=== PATIENT | female | born 1965 | race Caucasian/White ===

== ENCOUNTER → 2017-04-25 | Outpatient (CLI) | payer BC ==
--- NOTE | 2017-04-25 08:25 | RAD ---
Indication: Chronic bilateral knee pain. Time of exam 0816 hours. AP and lateral views of bilateral knees were obtained. There is mild medial compartmental joint space narrowing bilaterally. The articular surfaces are smooth. No fracture or dislocation is seen. No joint effusion is identified. Impression: Mild degenerative changes. No acute bony abnormality is detected.
== END | disposition home or self-care (01) ==
LOC: DXRADRC 08:01
PROVIDERS: ATTEND Physician Assistant Medical
DX: M17.0 Bilateral primary osteoarthritis of knee (principal)
CPT/HCPCS: 73560

== ENCOUNTER 2017-06-24 07:45 | Inpatient (IN) | payer BC ==
[~2017-06-24] VITALS: Ht 152.4 cm; Wt 116.6 kg
[2017-06-24] MEDS ORDERED: ASPIRIN 81 MG TAB.CHEW PO ONE (08:25)
[2017-06-24 08:34] LABS: BASO # 0.1 x10^3/uL (0.0-0.2); BASO % 1 % (0-3); EOS # 0.3 x10^3/uL (0.0-0.7); EOS % 3 % (0-3); HEMATOCRIT 47.6 % (36.0-47.0); HEMOGLOBIN 16.3 g/dL (12.0-15.5); LYMPH # 2.8 x10^3/uL (1.0-4.8); LYMPH % 28 % (24-48); MEAN CORPUSCULAR HEMOGLOBIN 30 pg (25-35); MEAN CORPUSCULAR HGB CONC 34 g/dL (31-37); MEAN CORPUSCULAR VOLUME 87 fL (79-100); MONO % 10 % (0-9); NEUT # 5.8 x10^3uL (1.8-7.7); NEUT % 58 % (31-73); PLATELET COUNT 286 x10^3/uL (140-400); RED BLOOD COUNT 5.49 x10^6/uL (3.50-5.40); RED CELL DISTRIBUTION WIDTH 13.9 % (11.5-14.5)
--- NOTE | 2017-06-24 08:36 | RAD ---
Portable chest, 06/24/2017: History: Chest pain Comparison is made to a study from 10/26/2007. The heart size and pulmonary vascularity are normal. The lungs are clear. There is no evidence of pleural fluid. IMPRESSION: No acute cardiopulmonary abnormality is detected.
[2017-06-24 08:46] LABS: ALBUMIN 3.6 g/dL (3.4-5.0); ALBUMIN/GLOBULIN RATIO 1.1 (1.0-1.7); CALCIUM 9.2 mg/dL (8.5-10.1); CREATININE 0.9 mg/dL (0.6-1.0); GFR 65.5; POTASSIUM 3.8 mmol/L (3.5-5.1); TOTAL BILIRUBIN 0.8 mg/dL (0.2-1.0)
--- NOTE | 2017-06-24 10:15 | PHYS DOC ---
Past History Past Medical History: Arthritis, Hypertension Past Surgical History: Cholecystectomy, Alcohol Use: None Drug Use: None Adult General Chief Complaint Chief Complaint: BRADYCARDIA HPI HPI 52-year-old female with past medical history of morbid obesity hypertension and high cholesterol now presents to the emergency department concerned about awakening with a very low heart rate. 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 Miles. His been compliant with this medication. Over the last 3 days each morning patient states she has awakened with chest pressure and shortness of breath. Her heart rate at those times after awakening with a range from 38 to low 40s. After getting up and walking around her heart rate improves to 60s and 70s and she states she feels fine. She had no nausea vomiting or diaphoresis. No productive cough or fever. No pleuritic pain or pain with movement or palpation of the chest wall. She is currently asymptomatic. States she has not perceived exertional chest pain during the day during her normal activities. Patient's last cardiac workup was more than 8 years ago when she had a stress test which was unremarkable. She has never had a cardiac catheterization. Review of Systems Review of Systems Constitutional: Denies fever or chills [] Eyes: Denies change in visual acuity, redness, or eye pain [] HENT: Denies nasal congestion or sore throat [] Respiratory: Denies cough or shortness of breath [] Cardiovascular: No additional information not addressed in HPI [] GI: Denies abdominal pain, nausea, vomiting, bloody stools or diarrhea [] : Denies dysuria or hematuria [] Musculoskeletal: Denies back pain or joint pain [] Integument: Denies rash or skin lesions [] Neurologic: Denies headache, focal weakness or sensory changes [] Endocrine: Denies polyuria or polydipsia [] Current Medications Current Medications Current Medications Medications (Trade) Dose Ordered Sig/Osvaldo Start Time Stop Time Status Last Admin Dose Admin Aspirin (Children'S Aspirin) 324 mg 1X ONCE 06/24/17 08:25 06/24/17 08:26 DC 06/24/17 08:21 324 MG Allergies Allergies Allergies Coded Allergies Type Severity Reaction Last Updated Verified azithromycin Allergy Mild 06/24/17 Yes ciprofloxacin Allergy Unknown 06/24/17 Yes Physical Exam Physical Exam Well-appearing 52-year-old female morbidly obese no acute distress nontender chest wall clear lungs regular rate and rhythm no crepitus or skin changes of the anterior chest wall. Abdomen remainder of exam is benign with no lower extremity edema, tenderness, or asymmetry Constitutional: Well developed, well nourished, no acute distress, non-toxic appearance. [] HENT: Normocephalic, atraumatic, bilateral external ears normal, oropharynx moist, no oral exudates, nose normal. [] Eyes: PERRLA, EOMI, conjunctiva normal, no discharge. [] Neck: Normal range of motion, no tenderness, supple, no stridor. [] Cardiovascular:Heart rate regular rhythm, no murmur [] Lungs & Thorax: Bilateral breath sounds clear to auscultation [] Abdomen: Bowel sounds normal, soft, no tenderness, no masses, no pulsatile masses. [] Skin: Warm, dry, no erythema, no rash. [] Back: No tenderness, no CVA tenderness. [] Extremities: No tenderness, no cyanosis, no clubbing, ROM intact, no edema. [] Neurologic: Alert and oriented X 3, normal motor function, normal sensory function, no focal deficits noted. [] Psychologic: Affect normal, judgement normal, mood normal. [] Current Patient Data Vital Signs Vital Signs Date Time Temp Pulse Resp B/P (MAP) Pulse Ox O2 Delivery O2 Flow Rate FiO2 06/24/17 07:45 99.2 88 16 97 Room Air Lab Results Laboratory Tests Test 06/24/17 08:18 White Blood Count 10.0 x10^3/uL (4.0-11.0) Red Blood Count 5.49 x10^6/uL (3.50-5.40) H Hemoglobin 16.3 g/dL (12.0-15.5) H Hematocrit 47.6 % (36.0-47.0) H Mean Corpuscular Volume 87 fL (79-100) Mean Corpuscular Hemoglobin 30 pg (25-35) Mean Corpuscular Hemoglobin Concent 34 g/dL (31-37) Red Cell Distribution Width 13.9 % (11.5-14.5) Platelet Count 286 x10^3/uL (140-400) Neutrophils (%) (Auto) 58 % (31-73) Lymphocytes (%) (Auto) 28 % (24-48) Monocytes (%) (Auto) 10 % (0-9) H Eosinophils (%) (Auto) 3 % (0-3) Basophils (%) (Auto) 1 % (0-3) Neutrophils # (Auto) 5.8 x10^3uL (1.8-7.7) Lymphocytes # (Auto) 2.8 x10^3/uL (1.0-4.8) Monocytes # (Auto) 1.0 x10^3/uL (0.0-1.1) Eosinophils # (Auto) 0.3 x10^3/uL (0.0-0.7) Basophils # (Auto) 0.1 x10^3/uL (0.0-0.2) Sodium Level 139 mmol/L (136-145) Potassium Level 3.8 mmol/L (3.5-5.1) Chloride Level 104 mmol/L (98-107) Carbon Dioxide Level 28 mmol/L (21-32) Anion Gap 7 (6-14) Blood Urea Nitrogen 10 mg/dL (7-20) Creatinine 0.9 mg/dL (0.6-1.0) Estimated GFR (Cockcroft-Gault) 65.5 BUN/Creatinine Ratio 11 (6-20) Glucose Level 105 mg/dL (70-99) H Calcium Level 9.2 mg/dL (8.5-10.1) Total Bilirubin 0.8 mg/dL (0.2-1.0) Aspartate Amino Transferase (AST) 18 U/L (15-37) Alanine Aminotransferase (ALT) 33 U/L (14-59) Alkaline Phosphatase 64 U/L (46-116) Troponin I Quantitative < 0.017 ng/mL (0-0.055) Total Protein 7.0 g/dL (6.4-8.2) Albumin 3.6 g/dL (3.4-5.0) Albumin/Globulin Ratio 1.1 (1.0-1.7) EKG EKG EKG with normal sinus rhythm at 80 bpm normal axis no STEMI. ST segment depression with nonspecific T-wave abnormality anterior lateral distribution. Interpreted by me Radiology/Procedures Radiology/Procedures Chest x-ray no acute disease interpreted by me report reviewed [] Course & Med Decision Making Course & Med Decision Making Pertinent Labs and Imaging studies reviewed. (See chart for details) Signs and symptoms consistent with chest pain a possible cardiac etiology with EKG changes suggestive of ischemia. Patient is pain-free in the emergency department. Aspirin was given. Chest x-ray unremarkable troponin negative. Patient stable on multiple re-exams. His discussed with Dr. Maru shetty service and his nurse practitioner is aware of the history and findings, they agree with admission for further cardiac workup and they will provide cardiac consultation.. Haile discussed with Dr. Farr she is aware the history and findings and accept patient for inpatient admission to her service here at [facility]. [] Dragon Disclaimer Dragon Disclaimer This chart was dictated in whole or in part using Voice Recognition software in a busy, high-work load, and often noisy Emergency Department environment. It may contain unintended and wholly unrecognized errors or omissions. Departure Departure: Impression: Primary Impression: Chest pain Additional Impressions: ST segment changes on electrocardiogram Symptomatic bradycardia Disposition: ADMITTED INPATIENT Admitting Physician: Natalia Farr Condition: STABLE Referrals: FRANCIS STYLES (PCP) Problem Qualifiers BELIA ERVIN MD Jun 24, 2017 10:15
--- NOTE | 2017-06-24 11:09 | PDOC2 ---
YANCILESLY J SALES DATA ANALYST 06/24/17 1109: CONSULT Date of Admission DATE: 06/24/17 TIME: 11:06 Reason for Consult: symptomatic bradycardia Problem List Problems Medical Problems: (1) Chest pain Status: Acute (2) ST segment changes on electrocardiogram Status: Acute (3) Symptomatic bradycardia Status: Acute History of Present Illness Ms Delvalle is a 52 year old female who presents with complaints of heart rates in the 30s. She reports that she has been waking in the am with feeling short of breath and on checking her blood pressure she has gotten heart rate readings of 30s. She reportedly called the physicians office and was instructed to hold her atenolol for heart rate less than 60. She says her heart rate was improved by noon so she took her atenolol. this am she again woke with low heart rates so presented to the ED for evaluation. She reports most often low rates occurring in the am but can happen any time of day. She says she believes the episodes last up to 10 minutes. She reports associated lightheadedness, dyspnea and chest pressure. She believes exertion improves her rate. She denies complaints of congestive symptoms, edema or syncope. Past Medical History hypertension, dyslipidemia, DVT/PE, lumbago sinusitis, headaches, degenerative disc disease, anxiety Echo 2011 Normal LVEF 60-65% normal diastolic function no significant abnormalities MPI 2011 normal perfusion and wall motion Past Surgical History cholecystectomy hernia repair hysterectomy C section x 3 Family History significant for hypertension, stroke and RI Social History non smoker, no significant ETOH, no illicit drugs Current Medications Current Medications Aspirin (Children'S Aspirin) 324 mg 1X ONCE PO Last administered on 06/24/17t 08:21; Start 06/24/17 at 08:25; Stop 06/24/17 at 08:26; Status DC Allergies: Coded Allergies: azithromycin (Verified Allergy, Mild, 06/24/17) ciprofloxacin (Verified Allergy, Unknown, 06/24/17) Review of System as per HPI or negative General: Alert, Oriented X3, Cooperative, No acute distress HEENT: Atraumatic, EOMI, Mucous membr. moist/pink Lungs: Clear to auscultation, Normal air movement Heart: Regular rate, Normal S1, Normal S2, No murmurs, Other (no gallops, clicks or rubs) Abdomen: Normal bowel sounds, Soft, No tenderness Extremities: No cyanosis, No edema, Normal pulses Neuro: Normal speech, Strength at 5/5 X4 ext Psych/Mental Status: Mental status NL, Mood NL VITALS Vital Signs Date Time Temp Pulse Resp B/P (MAP) Pulse Ox O2 Delivery O2 Flow Rate FiO2 06/24/17 07:45 99.2 88 16 97 Room Air Labs Laboratory Tests Test 06/24/17 08:18 White Blood Count 10.0 x10^3/uL (4.0-11.0) Red Blood Count 5.49 x10^6/uL (3.50-5.40) Hemoglobin 16.3 g/dL (12.0-15.5) Hematocrit 47.6 % (36.0-47.0) Mean Corpuscular Volume 87 fL (79-100) Mean Corpuscular Hemoglobin 30 pg (25-35) Mean Corpuscular Hemoglobin Concent 34 g/dL (31-37) Red Cell Distribution Width 13.9 % (11.5-14.5) Platelet Count 286 x10^3/uL (140-400) Neutrophils (%) (Auto) 58 % (31-73) Lymphocytes (%) (Auto) 28 % (24-48) Monocytes (%) (Auto) 10 % (0-9) Eosinophils (%) (Auto) 3 % (0-3) Basophils (%) (Auto) 1 % (0-3) Neutrophils # (Auto) 5.8 x10^3uL (1.8-7.7) Lymphocytes # (Auto) 2.8 x10^3/uL (1.0-4.8) Monocytes # (Auto) 1.0 x10^3/uL (0.0-1.1) Eosinophils # (Auto) 0.3 x10^3/uL (0.0-0.7) Basophils # (Auto) 0.1 x10^3/uL (0.0-0.2) Sodium Level 139 mmol/L (136-145) Potassium Level 3.8 mmol/L (3.5-5.1) Chloride Level 104 mmol/L (98-107) Carbon Dioxide Level 28 mmol/L (21-32) Anion Gap 7 (6-14) Blood Urea Nitrogen 10 mg/dL (7-20) Creatinine 0.9 mg/dL (0.6-1.0) Estimated GFR (Cockcroft-Gault) 65.5 BUN/Creatinine Ratio 11 (6-20) Glucose Level 105 mg/dL (70-99) Calcium Level 9.2 mg/dL (8.5-10.1) Total Bilirubin 0.8 mg/dL (0.2-1.0) Aspartate Amino Transf (AST/SGOT) 18 U/L (15-37) Alanine Aminotransferase (ALT/SGPT) 33 U/L (14-59) Alkaline Phosphatase 64 U/L (46-116) Troponin I Quantitative < 0.017 ng/mL (0-0.055) Total Protein 7.0 g/dL (6.4-8.2) Albumin 3.6 g/dL (3.4-5.0) Albumin/Globulin Ratio 1.1 (1.0-1.7) Images EKG - sinus rhythm with non specific st/t abn. no acute ischemic changes CXR - no acute abnormalities Assessment/Plan 1. Symptomatic micah - Currently sinus rhythm 80s. Stop atenolol. monitor and plan for outpatient event monitoring. As symptoms most frequently occur in the am on waking, consider sleep apnea eval. 2. chest pain - monitor serial enzymes, check echo and if ok, plan for outpatient event monitor. 3. hypertension - controlled. 4. hyperlipidemia - check lipids 5. obesity - weight reduction recommended. Problems: LAUREL JACKSON MD 06/24/17 1634: CONSULT Allergies: Coded Allergies: azithromycin (Verified Allergy, Mild, 06/24/17) ciprofloxacin (Verified Allergy, Unknown, 06/24/17) Assessment/Plan Patient seen and examined. Agree with DRILLER'S ASSISTANT's assessment and plan Agree with holding beta blockers for bradycardia. Consider sleep study to rule out sleep apnea. Chest pain with atypical features. Cardiac enzymes negative. 2-D echo showed normal LV function without any wall motion abnormalities. Plan for event monitor as an outpatient to rule out any significant arrhythmias. Thank you for your consultation. Problems: LESLY PETE APRN Jun 24, 2017 11:09 LAUREL JACKSON MD Jun 24, 2017 16:34
[2017-06-24 11:41] VITALS: BP 132/78
[2017-06-24] MEDS ORDERED: AMLO10TA2 PO (12:14)
[2017-06-24] MEDS ORDERED: SIMV40TA3 PO (12:14)
[2017-06-24] MEDS ORDERED: LOSA50TA6 PO (12:14)
[2017-06-24] MEDS ORDERED: ATEN50TA PO (12:14)
--- NOTE | 2017-06-24 12:30 | NUR ---
The patient, LEANDRO ERVIN, 52 y/o, F admitted by AN FLOWERS DO, was given written information regarding hospital policies, unit procedures and contact persons. Valuables were checked and left in room. Pt states she has been having chest pain, weakness and nausea in the morning x 3 days. states she has been told she may have sleep apnea as well. Dr. Choe aware of patients arrival to unit. Echo ordered, repeat troponins and lipids. See flowsheet. Able to verbalize POC, will continue to monitor.
[2017-06-24 14:17] LABS: THYROID STIM HORMONE (TSH) 5.154 uIU/mL (0.358-3.740)
--- NOTE | 2017-06-24 14:45 | NUR ---
air sealing technician here at this time. Noted on teletypesetter monitor that patient appears to go into bigemeny when asleep, once woken up then she goes back into SR. Pt states she feels a little off when waking up. Nocturnal desat and sleep apnea study ordered.
[2017-06-24 15:28] VITALS: BP 127/85
--- NOTE | 2017-06-24 16:30 | CARD ---
APPROVED REPORT EXAM: Two-dimensional and M-mode echocardiogram with Doppler and color Doppler. Other Information Quality : Excellent INDICATION Chest Pain RISK FACTORS Obesity 2D DIMENSIONS RVDd3.0 (2.9-3.5cm)Left Atrium(2D)4.1 (1.6-4.0cm) IVSd1.1 (0.7-1.1cm)Aortic Root(2D)2.5 (2.0-3.7cm) LVDd3.6 (3.9-5.9cm)LVOT Diameter2.0 (1.8-2.4cm) PWd1.1 (0.7-1.1cm)LVDs1.9 (2.5-4.0cm) FS (%) 30.0 %SV42.1 ml LVEF(%)60.0 (>50%) Aortic Valve AoV Peak David.121.7cm/sAoV VTI21.9cm AO Peak GR.5.9mmHgLVOT Peak David.115.1cm/s LVOT VTI 21.46cmAO Mean GR.3mmHg AME (VMAX)2.30co1QXQ (VTI)2.98cm2 Mitral Valve MV E Opfnlyoe00.0cm/sMV DECEL ZUCF102bj MV A Qzpwaaxw09.8cm/sE/A Ratio0.7 Tricuspid Valve TR P. Oxgccxhm454zf/sRAP UYRNQMIT3onMw TR Peak Gr.93ioFlSXZS57mkQf Pulmonary Vein S1 Umpzliau07.9cm/sD2 Dcyvkout95.1cm/s LEFT VENTRICLE The left ventricle is normal size. There is normal left ventricular wall thickness. The left ventricu lar systolic function is normal and the ejection fraction is within normal range. The Ejection Fracti on is 55-60%. There is normal LV segmental wall motion. Transmitral Doppler flow pattern is Grade I-a bnormal relaxation pattern. RIGHT VENTRICLE The right ventricle is normal size. The right ventricular systolic function is normal. ATRIA The left atrium size is normal. The right atrium size is normal. The interatrial septum is intact wit h no evidence for an atrial septal defect or patent foramen ovale as noted on 2-D or Doppler imaging. AORTIC VALVE The aortic valve is calcified but opens well. Doppler and Color Flow revealed no significant aortic r egurgitation. There is no significant aortic valvular stenosis. MITRAL VALVE The mitral valve is normal in structure and function. There is no evidence of mitral valve prolapse. There is no mitral valve stenosis. Doppler and Color Flow revealed trace mitral valve regurgitation. TRICUSPID VALVE The tricuspid valve is normal in structure and function. Doppler and Color Flow revealed trace tricus pid regurgitation. The PA pressure was estimated at 25 mmHg. There is no tricuspid valve stenosis. PULMONIC VALVE The pulmonary valve is normal in structure and function. Doppler and Color Flow revealed mild pulmoni c valvular regurgitation. There is no pulmonic valvular stenosis. GREAT VESSELS The aortic root is normal in size. The ascending aorta is normal in size. The IVC was not visualized. PERICARDIAL EFFUSION There is no evidence of significant pericardial effusion. Critical Notification Critical Value: No <Conclusion> The left ventricle is normal size. The left ventricular systolic function is normal and the ejection fraction is within normal range. The Ejection Fraction is 55-60%. There is no significant aortic valvular stenosis. Doppler and Color Flow revealed no significant aortic regurgitation. Doppler and Color Flow revealed trace mitral valve regurgitation. Doppler and Color Flow revealed trace tricuspid regurgitation. The PA pressure was estimated at 25 mmHg.
--- NOTE | 2017-06-24 17:52 | HP ---
ADMIT DATE: 06/24/2017 REASON FOR ADMISSION: Bradycardia, chest pressure, nausea and weakness. HISTORY OF PRESENT ILLNESS: This is a 35-year-old female who has been taking atenolol and her other blood pressure medications and reports waking up last several days with heart rates in the 30s and 40s and feeling chest pressure and having trouble breathing. Yesterday morning, she did not take her pills, after that she again started to have problems with low pulse. PAST MEDICAL HISTORY: Hypertension, obesity, arthritis of her knee, DVT and pulmonary embolism in 1996, for which she took Coumadin for a year. FAMILY HISTORY: Father had a heart attack. Mother breast cancer. She has been getting her mammograms. REVIEW OF SYSTEMS: A son in the room report, she does snore and possibly stops breathing while she is sleeping. There has been some increase in her weight and she has arthritis pain in her knee. MEDICATIONS: Were reviewed. Losartan 50, simvastatin 20 a day, amlodipine 10 a day and atenolol 50 mg daily, she takes them all in the morning except for the simvastatin. OBJECTIVE: VITAL SIGNS: Blood pressure 127/85, pulse 86, respirations 20, temperature 98.3, pulse ox 94% on room air. Height 60 inches, weight 258 pounds. GENERAL: A 52-year-old in no acute distress. ENT: His hearing is normal. Her eyes are clear. Nose is patent. Throat was clear. Large tongue relative to the posterior pharynx and short neck. No adenopathy. LUNGS: Clear. CARDIOVASCULAR: Regular rhythm and rate. ABDOMEN: Large, obese. There is mild midepigastric tenderness, otherwise nontender. EXTREMITIES: Without edema. MUSCULOSKELETAL: Early on, the patient had been sleeping and nursing reported that she went into bigeminy and when they woke her up, she promptly woke up. LABORATORY DATA: Hemoglobin 16.3, hematocrit 47.6. Lipids: LDL 112, her TSH is 5.154. Troponins are negative. EKG is not available to review the reported some ST depression. ASSESSMENT: 1. Bradycardia secondary to beta blockers. 2. Chest pain, questionable etiology. 3. Morbid obesity. 4. Sleep apnea suspect with bigeminy while sleeping. 5. Polycythemia, probably from sleep apnea. 6. Subclinical hypothyroidism. PLAN: Check T3 and free T3 and T4 and do a nocturnal oximetry tonight. AN FLOWERS DO DR: ZACHERY/tabitha JOB#: [id number] / [id number]
[2017-06-24 19:09] VITALS: BP 129/86
[2017-06-24 23:17] VITALS: BP 133/74
--- NOTE | 2017-06-25 01:00 | NUR ---
transfer table operator helper of care. Report received from HANANE Arthur.
[2017-06-25 05:19] VITALS: BP 165/85
[2017-06-25 05:41] LABS: BASO % 0 % (0-3); EOS # 0.2 x10^3/uL (0.0-0.7); EOS % 2 % (0-3); HEMATOCRIT 48.8 % (36.0-47.0); HEMOGLOBIN 16.7 g/dL (12.0-15.5); LYMPH # 2.9 x10^3/uL (1.0-4.8); LYMPH % 29 % (24-48); MEAN CORPUSCULAR HEMOGLOBIN 30 pg (25-35); MEAN CORPUSCULAR HGB CONC 34 g/dL (31-37); MEAN CORPUSCULAR VOLUME 87 fL (79-100); MONO # 0.9 x10^3/uL (0.0-1.1); MONO % 9 % (0-9); NEUT % 60 % (31-73); PLATELET COUNT 288 x10^3/uL (140-400); RED CELL DISTRIBUTION WIDTH 13.7 % (11.5-14.5); WHITE BLOOD COUNT 10.1 x10^3/uL (4.0-11.0)
[2017-06-25 05:49] LABS: ALBUMIN 3.8 g/dL (3.4-5.0); ALBUMIN/GLOBULIN RATIO 1.1 (1.0-1.7); CALCIUM 9.4 mg/dL (8.5-10.1); CREATININE 0.9 mg/dL (0.6-1.0); GFR 65.5; MAGNESIUM 2.1 mg/dL (1.8-2.4); POTASSIUM 3.6 mmol/L (3.5-5.1); TOTAL BILIRUBIN 1.3 mg/dL (0.2-1.0); TOTAL PROTEIN 7.3 g/dL (6.4-8.2)
--- NOTE | 2017-06-25 06:45 | ACF ---
Admission Criteria Forms CARDIOLOGY [facility]G Clinical Indications for Admission to Inpatient Care ( [place]/check or initial the applicable condition/criteria) Hospital admission is needed for appropriate care of the patient because of ANY ONE of the following: [ ] I. Hemodynamic instability as indicated by ALL of the following (1)(2)(3) (4)(5)(6)(7)(8)(9)(10) [ ]a) Vital sign abnormality not readily corrected by appropriate treatment with 12-24 hours for ANY ONE: [ ]i) Hypotension that persists despite appropriate treatment (eg, volume repletion) [ ]ii) Tachycardiathat persists despite appropriate tx ( e.g., analgesia, fluids, sedation as indicated [ ]iii) Orthostatic vital sign changes that persists despite appropriate treatment (eg, volume repletion) [ ]b) Vital sign abnormailty that is severe indicated by ANY ONE of the following: [ ]i) Inadequate perfusion indicated by ANY ONE of the following: [ ] 1) Lactic acidosis (> 2 mmol/L) [ ] 2) New abnormal capillary refill (> 3 seconds) [ ] 3) Reduced urine output [ ] 4) New altered mental status [ ] 5) Myocardial Ischemia [ ] 6) Other metabolic acidosis (arterial pH <7.35 ) not otherwise explained. [ ]ii) Mean arterial pressure[A] less than 60 mm Hg [ ]iii) Mean arterial pressure[A] less than 70 mm Hg after 30 minutes of appropriate treatment (eg, fluid resuscitation) [ ]iv) Sustained heart rate greater than 120 beats per minute in adult or child 6 years or older[B] [ ]v) IV inotropic or vasopressor medication required to maintain adequate blood pressure or perfusion [ ] II. Severe heart failure as indicated by ANY ONE of the following(17)(18) [ ]a) Respiratory distress [ ]b) Hypotension [ ]c) Debilitating anasarca refractory to therapy (eg, tissue breakdown with infection)[C](19) [ ]d) Cardiac arrhythmias of immediate concern [ ]e) Myocardial ischemia [ ] III. Cardiac arrhythmias or findings of immediate concern indicated by ANY ONE of the following (21)(22): [ ] a) Heart rhythms that are inherently dangerous or unstable indicated by ANY ONE of the following (23)(24)(25): [ ] i) Resuscitated ventricular fibrillation or cardiac arrest [ ] ii) Ventricular escape rhythm [ ] iii) Sustained ventricular tachycardia (30 seconds or more of ventricular rhythm at greater than 100 beats per minute) [ ] iv) Nonsustained ventricular tachycardia and ANY ONE of the following: [ ] 1) Suspected cardiac ischemia as cause or consequence of ventricular tachycardia [ ] 2) Acute myocarditis [ ] b) Unstable cardiac conduction defects indicated by ANY ONE of the following(25)(26)(27) [ ] i) Type II second-degree atrioventricular block [ ]ii) Third-degree atrioventricular block [ ]iii) New-onset left bundle branch block with suspected myocardial ischemia [ ]c) Any heart rhythm and ANY ONE of the following (23)(24)(28)(29) (30) [ ] i) Continuous long-term ECG monitoring needed (e.g., initiation of drug requiring monitoring for more than 24 hours) [ ] ii) Patient has automatic implanted cardioverter defibrillator that is repeatedly firing, malfunctioning, or in need of immediate adjustment of settings beyond the scope of ambulatory or observation care [ ]d) Heart rhythms of concern due to ANY ONE of the following: [ ] i) Hypotension [ ] ii) Respiratory distress [ ] iii) Association with other significant symptoms (e.g., bradycardia with syncope or ongoing dizziness, supraventricular tachycardia with chest pain (28)(29)(31) [ ] IV. Monitoring for cardiac contusion beyond the scope of observation care needed [A](32)(33)(34) [ ] V. Surgical or device complication (e.g., valve replacement complication , ICD disfunction or pacemaker dysfunction) (49)(50)(51)(52)(53)(54) [ ] . Inpatient palliative care needed. [F](51)(52) Also use Inpatient Palliative Care Criteria [ ] VII. Nonbacterial thrombotic (marantic) endocarditis(43)(44)(55)(56)(57) [X] VIII. Cardiology condition, symptom, or finding for which emergency and observation care has failed or are not considered appropriate. [ ] IX. Acute valvular disease requiring inpatient as indicated by ANY ONE of the following (40)(41) [ ]a) Acute valvular regurgitation (42) [ ]b) Noninfectious valvulitis (43)(44) [ ]c) Obstructive valve thrombosis (45)(46) [ ]d) Paravalvular leak(47)(48) [ ]e) Other significant valvular disorder remaining after emergency or observation level of care (as appropriate) [ ]X. Pericardial disease requiring inpatient treatment as indicated by ANY ONE of the following (35)(36)(37)(38) [ ]a) Suspected tamponade [ ]b) Hemopericardium [ ]c) Other significant pericardial disorder remaining after emergency or observation level of care (as appropriate)(39) [ ] XI. Cardiac ischemia beyond scope of emergency and observation care. [ ] XII. Cyanotic heart disease requiring inpatient care as indicated by 1 or more of the following(58)(59)(60): [ ]a) Acute onset of hypoxemia [ ]b) Exacerbation [ ] XIII. Hypertension requiring inpatient treatment as indicated by ANYONE of the following(11)(12)(13)(14): [ ]a) Severe hypertension (SBP greater than 180 mm Hg or DBP greater than 110 mm Hg, or greater than the 95th percentile for age, gender, and height in pediatric patients) that cannot be controlled (eg, to SBP less than 160 mm Hg and DBP less than 100 mm Hg) by emergency department or observation care treatment(15) [ ]b) Acute end organ damage secondary to hypertension (SBP greater than 140 mm Hg or DBP greater than 90 mm Hg) as indicated by ANYONE of the following: [ ] i) Hypertensive encephalopathy (eg, Altered mental status)(16) [ ] ii) Cerebral infarction [ ] iii) Intracranial hemorrhage [ ] iv) Myocardial ischemia or infarction [ ] v) Heart failure (eg, pulmonary edema) [ ] vi) Aortic dissection [ ] vii) Increased creatinine (new) with reduction of more than 50% in estimated glomerular filtration rate from baseline [ ] viii) Papilledema [ ] ix) Retinal hemorrhage [ ] x) Microangiopathic hemolytic anemia [ ] xi) Seizure [ ] xii) Other significant finding secondary to hypertension [ ] XIV. Complications of transplanted heart indicated by ANY ONE of the following(61): [ ]a) Acute graft rejection requiring inpatient management (eg, intravenous imunosuppression)(62)(63) [ ]b) Acute graft heart failure indicated by ANY ONE of the following(64): [ ] i) Hemodynamic instability [ ] ii) Cardiac arrhythmias of immediate concern [ ] iii) Pulmonary edema that is very severe (eg, mechanical ventilation needed, imminent or likely, need for 100% oxygen to keep oxygen saturation above 90%) [ ] iv) Pulmonary edema that is persistent as indicated by ALL of the following: [ ] 1) New need for oxygen therapy to keep oxygen saturation above 90 % (or increased FiO2 need from baseline) [ ] 2) Has not improved sufficiently with emergency department or observation care IV diuretics or other heart failure treatments[E]. [ ] iv) Altered mental status that is severe or persistent [ ] iv) Increased creatinine (new on laboratory test) with reduction of more than 50% in estimated glomerular filtration rate from baseline [ ] iv) Progressively (ongoing) rising creatinine (known from past laboratory test) with reduction of more than 25% in estimated glomerular filtration rate from baseline [ ] iv) Acute renal failure [ ] iv) Acute peripheral ischemia (eg, examination shows pulseless, cool, mottled, or cyanotic extremity) [ ] iv) Pulmonary artery catheter monitoring needed [ ] iv) Other sign or symptom of heart failure requiring inpatient treatment (ie, too severe or not responsive to outpatient and observation care treatment) [ ]c) Infection requiring inpatient management (eg, Hemodynamic instability, need for intravenous antimicrobial treatment)(66)(67)(68)(69)(70) [ ]d) Cardiac allograft vasculopathy requiring inpatient management (eg evidence of cardiacischemia)(71) [ ]e) Other complication of transplanted heart (eg, stroke, severe pulmonary hypertension, severe valvular dysfunction) requiring inpatient management(72) The original [facility] content created by [employer] has been revised. The portions of the content which have been revised are identified through the use of italic text, and [facility] has neither reviewed nor approved the modified material. All other unmodified content is copyright [facility]. Please see references footnoted in the original [facility] edition 2014 Admission Criteria Met?: Yes ELVA DOBSON Jun 25, 2017 06:45
--- NOTE | 2017-06-25 07:28 | NUR ---
Pt in bigeminy at beginning while sleeping. Pt back to SR/ST now that she is awake. Pt states, "I did not have a good night, I could not sleep. My heart was acting not right and I wasn't drinking because I didn't want to have to get up to go to the bathroom." RN asked if her heart still felt funny, pt replied, "no". Pt aware that TSH levels high, T3, T4 levels not resulted yet. Pt informed that she was in bigeminy while sleeping but now back in normal rhythm. Pt verbalized understanding. RN will look for education to provide patient regarding bigeminy. Will continue to monitor.
[2017-06-25] MEDS ORDERED: METOPROLOL SUCC 24HR ER 25 MG TAB.ER.24H. PO SCH (09:00)
--- NOTE | 2017-06-25 09:01 | PDOC ---
PROGRESS NOTES Diagnosis Problem Problems Medical Problems: (1) Chest pain Status: Acute (2) ST segment changes on electrocardiogram Status: Acute (3) Symptomatic bradycardia Status: Acute Assessment Problems Medical Problems: (1) Chest pain Status: Acute (2) ST segment changes on electrocardiogram Status: Acute (3) Symptomatic bradycardia Status: Acute 1. Symptomatic micah - Remained sinus rhythm average 80s since admission. Frequent PVCs and episodes of bigeminy. suggest resume low dose beta jose and plan for MCT outpatient for PVC burden. 2. chest pain - TN ruled out. Echo with normal LV function. Suggest outpatient MPI. 3. hypertension - resume losartan. 4. hyperlipidemia - resume statin. 5. prob sleep apnea - Only ~4 hours on nocturnal oximetry, 92 desat events. Suggest outpatient home sleep study. 6. hypothyroid - as per PCP 7. obesity - weight reduction recommended. Problems: Subjective c/o fatigue and little sleep last noc, no chest discomfort, no dyspnea, no lightheadedness. Objective tele - sinus rhythm 80s with frequent PVC and episodes of bigeminy. Vital Signs Date Time Temp Pulse Resp B/P (MAP) Pulse Ox O2 Delivery O2 Flow Rate FiO2 06/25/17 05:19 98.2 165/85 (111) 97 Room Air 06/24/17 23:17 90 20 Intake and Output 06/25/17 07:00 Intake Total 1340 ml Balance 1340 ml Intake Oral 1340 ml # Voids 4 Abdomen: Normal bowel sounds, Soft, No tenderness Heart: Normal S1, Normal S2, Other (Irregular rhythm, no gallops, clicks or rubs) Extremities: No cyanosis, No edema, Normal pulses General: Alert, Oriented X3, Cooperative HEENT: Atraumatic, EOMI Lungs: Clear to auscultation, Normal air movement Neuro: Normal speech, Strength at 5/5 X4 ext Psych/Mental Status: Mental status NL, Mood NL Review of Relevant I have reviewed the following items daxa (where applicable) has been applied. Labs Laboratory Tests Test 06/24/17 08:18 06/24/17 15:10 06/25/17 05:15 White Blood Count 10.0 x10^3/uL (4.0-11.0) 10.1 x10^3/uL (4.0-11.0) Red Blood Count 5.49 x10^6/uL (3.50-5.40) 5.60 x10^6/uL (3.50-5.40) Hemoglobin 16.3 g/dL (12.0-15.5) 16.7 g/dL (12.0-15.5) Hematocrit 47.6 % (36.0-47.0) 48.8 % (36.0-47.0) Mean Corpuscular Volume 87 fL (79-100) 87 fL (79-100) Mean Corpuscular Hemoglobin 30 pg (25-35) 30 pg (25-35) Mean Corpuscular Hemoglobin Concent 34 g/dL (31-37) 34 g/dL (31-37) Red Cell Distribution Width 13.9 % (11.5-14.5) 13.7 % (11.5-14.5) Platelet Count 286 x10^3/uL (140-400) 288 x10^3/uL (140-400) Neutrophils (%) (Auto) 58 % (31-73) 60 % (31-73) Lymphocytes (%) (Auto) 28 % (24-48) 29 % (24-48) Monocytes (%) (Auto) 10 % (0-9) 9 % (0-9) Eosinophils (%) (Auto) 3 % (0-3) 2 % (0-3) Basophils (%) (Auto) 1 % (0-3) 0 % (0-3) Neutrophils # (Auto) 5.8 x10^3uL (1.8-7.7) 6.0 x10^3uL (1.8-7.7) Lymphocytes # (Auto) 2.8 x10^3/uL (1.0-4.8) 2.9 x10^3/uL (1.0-4.8) Monocytes # (Auto) 1.0 x10^3/uL (0.0-1.1) 0.9 x10^3/uL (0.0-1.1) Eosinophils # (Auto) 0.3 x10^3/uL (0.0-0.7) 0.2 x10^3/uL (0.0-0.7) Basophils # (Auto) 0.1 x10^3/uL (0.0-0.2) 0.0 x10^3/uL (0.0-0.2) Sodium Level 139 mmol/L (136-145) 141 mmol/L (136-145) Potassium Level 3.8 mmol/L (3.5-5.1) 3.6 mmol/L (3.5-5.1) Chloride Level 104 mmol/L (98-107) 104 mmol/L (98-107) Carbon Dioxide Level 28 mmol/L (21-32) 28 mmol/L (21-32) Anion Gap 7 (6-14) 9 (6-14) Blood Urea Nitrogen 10 mg/dL (7-20) 11 mg/dL (7-20) Creatinine 0.9 mg/dL (0.6-1.0) 0.9 mg/dL (0.6-1.0) Estimated GFR (Cockcroft-Gault) 65.5 65.5 BUN/Creatinine Ratio 11 (6-20) 12 (6-20) Glucose Level 105 mg/dL (70-99) 100 mg/dL (70-99) Calcium Level 9.2 mg/dL (8.5-10.1) 9.4 mg/dL (8.5-10.1) Total Bilirubin 0.8 mg/dL (0.2-1.0) 1.3 mg/dL (0.2-1.0) Aspartate Amino Transf (AST/SGOT) 18 U/L (15-37) 18 U/L (15-37) Alanine Aminotransferase (ALT/SGPT) 33 U/L (14-59) 35 U/L (14-59) Alkaline Phosphatase 64 U/L (46-116) 67 U/L (46-116) Troponin I Quantitative < 0.017 ng/mL (0-0.055) < 0.017 ng/mL (0-0.055) Total Protein 7.0 g/dL (6.4-8.2) 7.3 g/dL (6.4-8.2) Albumin 3.6 g/dL (3.4-5.0) 3.8 g/dL (3.4-5.0) Albumin/Globulin Ratio 1.1 (1.0-1.7) 1.1 (1.0-1.7) Triglycerides Level 113 mg/dL (0-150) Cholesterol Level 190 mg/dL (0-200) LDL Cholesterol, Calculated 112 mg/dL (0-100) VLDL Cholesterol, Calculated 22 mg/dL (0-40) Non-HDL Cholesterol Calculated 134 mg/dL (0-129) HDL Cholesterol 56 mg/dL (40-60) Cholesterol/HDL Ratio 3.0 Thyroid Stimulating Hormone (TSH) 5.154 uIU/mL (0.358-3.740) Magnesium Level 2.1 mg/dL (1.8-2.4) Medications Current Medications Aspirin (Children'S Aspirin) 324 mg 1X ONCE PO Last administered on 06/24/17 08:21; Start 06/24/17 at 08:25; Stop 06/24/17 at 08:26; Status DC Active Scripts Active Reported Amlodipine Besylate 10 Mg Tablet 1 Tab PO DAILY Simvastatin 40 Mg Tablet 0.5 Tab PO DAILY Losartan Potassium 50 Mg Tablet 50 Mg PO DAILY Atenolol 50 Mg Tablet 1 Tab PO DAILY Vitals/I & O Vital Sign - Last 24 Hours 06/24/17 06/24/17 06/24/17 06/24/17 11:41 14:15 15:28 19:09 Temp 98.1 98.3 98.2 Pulse 75 86 98 Resp 20 20 20 B/P (MAP) 132/78 (96) 127/85 (99) 129/86 (100) Pulse Ox 96 94 94 O2 Delivery Room Air Room Air Room Air Room Air 06/24/17 06/24/17 06/25/17 20:00 23:17 05:19 Temp 98.6 98.2 Pulse 90 Resp 20 B/P (MAP) 133/74 (93) 165/85 (111) Pulse Ox 94 97 O2 Delivery Room Air Room Air Room Air Intake and Output 06/24/17 06/24/17 06/25/17 15:00 23:00 07:00 Intake Total 1000 ml 340 ml Balance 1000 ml 340 ml LESLY PETE APRN Jun 25, 2017 09:01
[2017-06-25] MEDS ORDERED: LOSARTAN 50 MG TABLET. PO SCH (10:00)
[2017-06-25] MEDS ORDERED: amLODIPine BESYLATE 10 MG TABLET PO SCH (10:00)
[2017-06-25] MEDS ORDERED: LEVOTHYROXINE 25 MCG TABLET. PO SCH (10:15)
[2017-06-25 10:25] VITALS: BP 135/83
[2017-06-25] MEDS ORDERED: ASPIRIN ENTERIC COATED 81 MG TABLET.DR. PO SCH (12:00)
--- NOTE | 2017-06-25 12:09 | PDOC3 ---
Discharge Summary Visit Information Date of Admission: Jun 24, 2017 Date of Discharge: Jun 25, 2017 Final Diagnosis Problems Medical Problems: (1) Chest pain Status: Acute (2) ST segment changes on electrocardiogram Status: Acute (3) Symptomatic bradycardia Status: Acute 1. Symptomatic micah - Remained sinus rhythm average 80s since admission. Frequent PVCs and episodes of bigeminy. suggest resume low dose beta jose and plan for MCT outpatient for PVC burden. 2. chest pain - [place] ruled out. Echo with normal LV function. Suggest outpatient MPI. 3. hypertension - resume losartan. 4. hyperlipidemia - resume statin. 5. prob sleep apnea - Only ~4 hours on nocturnal oximetry, 92 desat events. Suggest outpatient home sleep study. 6. hypothyroid - as per PCP 7. obesity - weight reduction recommended. 8 polycythemia-probly secondary to sleep apnea 9. Morbid obesity with a BMI of 50.2 Problems: Brief Hospital Course Allergies Allergies Coded Allergies Type Severity Reaction Last Updated Verified azithromycin Allergy Mild 06/24/17 Yes ciprofloxacin Allergy Unknown 06/24/17 Yes Vital Signs Vital Signs Date Time Temp Pulse Resp B/P (MAP) Pulse Ox O2 Delivery O2 Flow Rate FiO2 06/25/17 10:25 98.3 103 20 135/83 (100) 95 Room Air Lab Results Laboratory Tests Test 06/24/17 08:18 06/24/17 15:10 06/25/17 05:15 White Blood Count 10.0 x10^3/uL (4.0-11.0) 10.1 x10^3/uL (4.0-11.0) Red Blood Count 5.49 x10^6/uL (3.50-5.40) 5.60 x10^6/uL (3.50-5.40) Hemoglobin 16.3 g/dL (12.0-15.5) 16.7 g/dL (12.0-15.5) Hematocrit 47.6 % (36.0-47.0) 48.8 % (36.0-47.0) Mean Corpuscular Volume 87 fL (79-100) 87 fL (79-100) Mean Corpuscular Hemoglobin 30 pg (25-35) 30 pg (25-35) Mean Corpuscular Hemoglobin Concent 34 g/dL (31-37) 34 g/dL (31-37) Red Cell Distribution Width 13.9 % (11.5-14.5) 13.7 % (11.5-14.5) Platelet Count 286 x10^3/uL (140-400) 288 x10^3/uL (140-400) Neutrophils (%) (Auto) 58 % (31-73) 60 % (31-73) Lymphocytes (%) (Auto) 28 % (24-48) 29 % (24-48) Monocytes (%) (Auto) 10 % (0-9) 9 % (0-9) Eosinophils (%) (Auto) 3 % (0-3) 2 % (0-3) Basophils (%) (Auto) 1 % (0-3) 0 % (0-3) Neutrophils # (Auto) 5.8 x10^3uL (1.8-7.7) 6.0 x10^3uL (1.8-7.7) Lymphocytes # (Auto) 2.8 x10^3/uL (1.0-4.8) 2.9 x10^3/uL (1.0-4.8) Monocytes # (Auto) 1.0 x10^3/uL (0.0-1.1) 0.9 x10^3/uL (0.0-1.1) Eosinophils # (Auto) 0.3 x10^3/uL (0.0-0.7) 0.2 x10^3/uL (0.0-0.7) Basophils # (Auto) 0.1 x10^3/uL (0.0-0.2) 0.0 x10^3/uL (0.0-0.2) Sodium Level 139 mmol/L (136-145) 141 mmol/L (136-145) Potassium Level 3.8 mmol/L (3.5-5.1) 3.6 mmol/L (3.5-5.1) Chloride Level 104 mmol/L (98-107) 104 mmol/L (98-107) Carbon Dioxide Level 28 mmol/L (21-32) 28 mmol/L (21-32) Anion Gap 7 (6-14) 9 (6-14) Blood Urea Nitrogen 10 mg/dL (7-20) 11 mg/dL (7-20) Creatinine 0.9 mg/dL (0.6-1.0) 0.9 mg/dL (0.6-1.0) Estimated GFR (Cockcroft-Gault) 65.5 65.5 BUN/Creatinine Ratio 11 (6-20) 12 (6-20) Glucose Level 105 mg/dL (70-99) 100 mg/dL (70-99) Calcium Level 9.2 mg/dL (8.5-10.1) 9.4 mg/dL (8.5-10.1) Total Bilirubin 0.8 mg/dL (0.2-1.0) 1.3 mg/dL (0.2-1.0) Aspartate Amino Transf (AST/SGOT) 18 U/L (15-37) 18 U/L (15-37) Alanine Aminotransferase (ALT/SGPT) 33 U/L (14-59) 35 U/L (14-59) Alkaline Phosphatase 64 U/L (46-116) 67 U/L (46-116) Troponin I Quantitative < 0.017 ng/mL (0-0.055) < 0.017 ng/mL (0-0.055) Total Protein 7.0 g/dL (6.4-8.2) 7.3 g/dL (6.4-8.2) Albumin 3.6 g/dL (3.4-5.0) 3.8 g/dL (3.4-5.0) Albumin/Globulin Ratio 1.1 (1.0-1.7) 1.1 (1.0-1.7) Triglycerides Level 113 mg/dL (0-150) Cholesterol Level 190 mg/dL (0-200) LDL Cholesterol, Calculated 112 mg/dL (0-100) VLDL Cholesterol, Calculated 22 mg/dL (0-40) Non-HDL Cholesterol Calculated 134 mg/dL (0-129) HDL Cholesterol 56 mg/dL (40-60) Cholesterol/HDL Ratio 3.0 Thyroid Stimulating Hormone (TSH) 5.154 uIU/mL (0.358-3.740) Free Thyroxine 1.20 ng/dL (0.76-1.46) Magnesium Level 2.1 mg/dL (1.8-2.4) Free Triiodothyronine (T3) pg/mL 3.15 pg/mL (2.18-3.98) Brief Hospital Course Ms. Delvalle is a 52 old female who presented with complaints of a low pulse and chest pressure . Work-up revealed some bigemeny with rate in the 80s. She had an abnormal nocturnal oximetry and will be set up for a sleep study. She also has polycythemia and will need outpatient follow-up. 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 Mildy hypothyroid and was started on levothyroxine. Encouraged reducing diet and exercise. Discharge Information Condition at Discharge: Improved Disposition/Orders: D/C to Home Dischare Medications Current Medications Aspirin (Children'S Aspirin) 324 mg 1X ONCE PO Last administered on 06/24/17 08:21; Start 06/24/17 at 08:25; Stop 06/24/17 at 08:26; Status DC Metoprolol Succinate (Toprol Xl) 25 mg DAILY PO Last administered on 06/25/17 09:24; Start 06/25/17 at 09:00 Amlodipine Besylate (Norvasc) 10 mg DAILY PO ; Start 06/26/17 at 09:00; Stop at 09:00; Status DC Losartan Potassium (Cozaar) 50 mg DAILY PO ; Start 06/26/17 at 09:00; Stop 06/26 at 09:00; Status DC Simvastatin (Zocor) 20 mg DAILY PO ; Start 06/26/17 at 09:00; Stop 06/26/17 at 09:00; Status DC Amlodipine Besylate (Norvasc) 10 mg DAILY PO Last administered on 06/25/17 10: 25; Start 06/25/17 at 10:00 Losartan Potassium (Cozaar) 50 mg DAILY PO Last administered on 06/25/17 10:24 ; Start 06/25/17 at 10:00 Simvastatin (Zocor) 20 mg DAILY PO ; Start 06/26/17 at 21:00; Stop 06/26/17 at 21:00; Status DC Levothyroxine Sodium (Synthroid) 25 mcg DAILY07 PO Last administered on 10:24; Start 06/25/17 at 10:15 Simvastatin (Zocor) 20 mg HS PO ; Start 06/25/17 at 21:00 Aspirin (Aspirin Enteric Coated) 81 mg DAILYWBKFT PO ; Start 06/26/17 at 08:00; Status UNV Active Scripts Active Reported Amlodipine Besylate 10 Mg Tablet 1 Tab PO DAILY Simvastatin 40 Mg Tablet 0.5 Tab PO DAILY Losartan Potassium 50 Mg Tablet 50 Mg PO DAILY Patient Instructions Patient Instuctions ON [facility] discharge AN FLOWERS DO Jun 25, 2017 12:09
[2017-06-25] MEDS ORDERED: ASPI-630 PO (12:12)
[2017-06-25] MEDS ORDERED: METO25TA9 PO (12:14)
[2017-06-25] MEDS ORDERED: LEVO25TA55 PO (12:14)
--- NOTE | 2017-06-25 13:28 | NUR ---
Pt discharging. Education regarding metoprolol, levothroid and hypothyroidism given to patient. Pts new meds sent to [facility]. Pt agrees with discharge plan. IV out and tele off.
--- NOTE | 2017-06-25 13:50 | EKG ---
[address] [address] Test Date: 2017-06-24 Test Time: 07:58:37 Pat Name: LEANDRO ERVIN Department: Room: 113 A Gender: F Finance Attorney: SHELLEY : 1965 Requested By: AN FLOWERS Order Number: [id number] Reading MD: Measurements Intervals [place] Rate: 80 P: 24 IA: 170 QRS: 1 QRSD: 80 T: 10 QT: 376 QTc: 437 Interpretive Statements SINUS RHYTHM QRS(T) CONTOUR ABNORMALITY CONSIDER ANTEROSEPTAL MYOCARDIAL DAMAGE CANNOT RULE OUT INFERIOR MYOCARDIAL DAMAGE RI6.01 Unconfirmed report No previous ECG available for comparison
[2017-06-25] MEDS ORDERED: SIMVASTATIN 20 MG TABLET PO SCH (21:00)
[2017-06-26] MEDS ORDERED: SIMVASTATIN 40 MG TABLET. PO SCH ×2 (09:00→21:00)
[2017-06-26] MEDS ORDERED: LOSARTAN 50 MG TABLET. PO SCH (09:00)
[2017-06-26] MEDS ORDERED: amLODIPine BESYLATE 10 MG TABLET PO SCH (09:00)
== END 2017-06-25 13:25 | disposition home or self-care (01) | DRG 309 ==
LOC: ER 07:45 → 1 SOUTH 10:01
PROVIDERS: ADMIT Family Medicine; ATTEND Family Medicine
DX: I49.3 Ventricular premature depolarization (principal); Z68.43 Body mass index [BMI] 50.0-59.9, adult; I10 Essential (primary) hypertension; E66.01 Morbid (severe) obesity due to excess calories; D75.1 Secondary polycythemia; M17.9 Osteoarthritis of knee, unspecified; E03.9 Hypothyroidism, unspecified; G47.30 Sleep apnea, unspecified; E78.5 Hyperlipidemia, unspecified; T50.995A Adverse effect of other drugs, medicaments and biological substances, initial encounter; Y92.89 Other specified places as the place of occurrence of the external cause; Z86.711 Personal history of pulmonary embolism; Z86.718 Personal history of other venous thrombosis and embolism; Z82.49 Family history of ischemic heart disease and other diseases of the circulatory system; Z80.3 Family history of malignant neoplasm of breast; Z79.899 Other long term (current) drug therapy; Z90.49 Acquired absence of other specified parts of digestive tract; Z88.1 Allergy status to other antibiotic agents; F41.9 Anxiety disorder, unspecified; Z82.3 Family history of stroke
CPT/HCPCS: 36415; 71010; 80053; 80061; 83735; 84436; 84439; 84443; 84481; 84484; 85025; 93005; 93306; 94799; 99285-25

== ENCOUNTER 2019-08-09 17:15 | Inpatient (IN) | payer BC ==
[~2019-08-09] VITALS: Ht 152.4 cm; Wt 114.4 kg
[~2019-08-09 17:15] MED LIST: AMLO10TA8 PO; ASPI-630 PO; ATEN50TA PO; LEVO25TA55 PO; LOSA50TA86 PO; METO-239 PO; SIMV40TA3 PO
--- NOTE | 2019-08-09 17:28 | EKG ---
[address] [address] Test Date: 2019-08-09 Test Time: 17:25:39 Pat Name: LEANDRO ERVIN Department: Room: Gender: F Senior Net Engineer: PILAR : 1965 Requested By: CORRINE VARGHESE Order Number: [id number] Reading MD: Shane Choe MD Measurements Intervals [place] Rate: 105 P: 61 CA: 164 QRS: -3 QRSD: 126 T: 40 QT: 348 QTc: 464 Interpretive Statements SINUS TACHYCARDIA RBBB CONSIDER PRIOR INFERIOR INFARCT Electronically Signed On 08-10-2019 9:55:25 CDT by Shane Choe MD
[2019-08-09] MEDS ORDERED: ASPIRIN 81 MG TAB.CHEW PO ONE (17:30)
[2019-08-09 17:48] LABS: BASO # 0.1 x10^3/uL (0.0-0.2); BASO % 1 % (0-3); EOS % 0 % (0-3); HEMATOCRIT 56.1 % (36.0-47.0); LYMPH # 1.5 x10^3/uL (1.0-4.8); LYMPH % 10 % (24-48); MEAN CORPUSCULAR HEMOGLOBIN 30 pg (25-35); MEAN CORPUSCULAR HGB CONC 34 g/dL (31-37); MEAN CORPUSCULAR VOLUME 89 fL (79-100); MONO # 1.1 x10^3/uL (0.0-1.1); MONO % 7 % (0-9); NEUT # 12.2 x10^3uL (1.8-7.7); NEUT % 82 % (31-73); PLATELET COUNT 251 x10^3/uL (140-400); RED BLOOD COUNT 6.34 x10^6/uL (3.50-5.40); RED CELL DISTRIBUTION WIDTH 14.7 % (11.5-14.5)
--- NOTE | 2019-08-09 17:49 | PHYS DOC ---
Past History Past Medical History: Arthritis, Hypertension Past Surgical History: Cholecystectomy, Alcohol Use: None Drug Use: None Adult General Chief Complaint Chief Complaint: CHEST PAIN HPI HPI 54-year-old female presents with chest pain. She has been having intermittent chest pain today since this morning. It is worse with exertion and improves with rest. She has some shortness of breath but denies diaphoresis. At its worst, the pain is 5 out of 10. It is currently 2 out of 10. She describes it as a squeezing sensation. Patient had a cardiac catheter 2-3 years ago that was reported to be negative. She denies fever or chills. Review of Systems Review of Systems Constitutional: Denies fever or chills [] Eyes: Denies change in visual acuity, redness, or eye pain [] HENT: Denies nasal congestion or sore throat [] Respiratory: shortness of breath [] Cardiovascular: No additional information not addressed in HPI [] GI: Denies abdominal pain, nausea, vomiting, bloody stools or diarrhea [] : Denies dysuria or hematuria [] Musculoskeletal: Denies back pain or joint pain [] Integument: Denies rash or skin lesions [] Neurologic: Denies headache, focal weakness or sensory changes [] Endocrine: Denies polyuria or polydipsia [] All other systems were reviewed and found to be within normal limits, except as documented in this note. Current Medications Current Medications Current Medications Medications (Trade) Dose Ordered Sig/Osvaldo Start Time Stop Time Status Last Admin Dose Admin Aspirin (Children'S Aspirin) 324 mg 1X ONCE 08/09/19 17:30 08/09/19 17:31 DC 08/09/19 17:30 324 MG Allergies Allergies Allergies Coded Allergies Type Severity Reaction Last Updated Verified azithromycin Allergy Mild 06/24/17 Yes ciprofloxacin Allergy Unknown 06/24/17 Yes Physical Exam Physical Exam Constitutional: Well developed, obese, well nourished, no acute distress, non- toxic appearance. [] HENT: Normocephalic, atraumatic, bilateral external ears normal, oropharynx moist, no oral exudates, nose normal. [] Eyes: PERRLA, EOMI, conjunctiva normal, no discharge. [] Neck: Normal range of motion, no tenderness, supple, no stridor. [] Cardiovascular: Heart rate regular rhythm, no murmur [] Lungs & Thorax: Bilateral breath sounds clear to auscultation [] Abdomen: Bowel sounds normal, soft, no tenderness, no masses, no pulsatile masses. [] Skin: Warm, dry, no erythema, no rash. [] Back: No tenderness, no CVA tenderness. [] Extremities: No tenderness, no cyanosis, no clubbing, ROM intact, no edema. [] Neurologic: Alert and oriented X 3, normal motor function, normal sensory function, no focal deficits noted. [] Psychologic: Affect normal, judgement normal, mood normal. [] EKG EKG Sinus tachycardia, rate 105, normal axis, right bundle branch block, no ST elevation or depression, inverted T waves in V1 through V4[] Radiology/Procedures Radiology/Procedures [] Impressions: PORTABLE CHEST 1V History: Chest pain Comparison: June 24, 2017. Findings: No consolidation or pleural effusion. Normal heart size. Impression: 1. No acute cardiopulmonary process. Electronically signed by: Thuan Matos DO (08/09/2019 5:57 PM) [facility] DICTATED AND SIGNED BY: THUAN MATOS DO DATE: 08/09/19 175 CC: CORRINE VARGHESE DO; FRANCIS STYLES ~ Course & Med Decision Making Course & Med Decision Making Pertinent Labs and Imaging studies reviewed. (See chart for details) The patient's labs are significant for hemoconcentration. Troponin is negative. EKG is negative for acute findings. Chest x-ray is unremarkable. The patient's hematocrit and hemoglobin has been elevated as far back as 5 years ago. His white count at that time was normal. Given the patient a liter normal saline. The patient's HEART score is 4. I will admit her to the hospital. Spoke with Dr. Palomares and he has accepted the patient for admission. The patient is in agreement with this plan. [] Dragon Disclaimer Dragon Disclaimer This electronic medical record was generated, in whole or in part, using a voice recognition dictation system. The HEART Score for CP Pts HEART Score for Chest Pain: HEART Score for Chest Pain Response (Comments) Value History Moderately Suspicious 1 ECG Nonspecific Repolarizatio 1 Age >45 - < 65 1 Risk Factors 1 or 2 Risk Factors 1 Troponin < Normal Limit 0 Total 4 Risk Factors: Risk Factors: DM, Current or recent (<one month) smoker, HTN, HLP, family history of CAD, obesity. Risk Scores: Score 0 - 3: 2.5% MACE over next 6 weeks - Discharge Home Score 4 - 6: 20.3% MACE over next 6 weeks - Admit for Clinical Observation Score 7 - 10: 72.7% MACE over next 6 weeks - Early Invasive Strategies Departure Departure: Impression: Primary Impression: Chest pain Disposition: 01 HOME, SELF-CARE Condition: STABLE Referrals: FRANCIS STYLES (PCP) Problem Qualifiers Primary Impression: Chest pain Chest pain type: unspecified Qualified Codes: R07.9 - Chest pain, unspecified CORRINE VARGHESE DO Aug 09, 2019 17:49
--- NOTE | 2019-08-09 18:00 | RAD ---
PORTABLE CHEST 1V History: Chest pain Comparison: June 24, 2017. Findings: No consolidation or pleural effusion. Normal heart size. Impression: 1. No acute cardiopulmonary process. Electronically signed by: Thuan Matos DO (08/09/2019 5:57 PM) [facility]
[2019-08-09 18:03] LABS: ALBUMIN 4.2 g/dL (3.4-5.0); CALCIUM 9.9 mg/dL (8.5-10.1); GFR 57.6; POTASSIUM 3.7 mmol/L (3.5-5.1); TOTAL PROTEIN 8.6 g/dL (6.4-8.2)
[2019-08-09] MEDS ORDERED: IV NORMAL SALINE 1,000ML 1,000 ML IV ONE (19:00)
[2019-08-09] MEDS ORDERED: NITROGLYCERIN SUBLINGUAL 0.4 MG BOTTLE OF 25. SL PRN (20:00)
[2019-08-09] MEDS ORDERED: ONDANSETRON PF 4 MG/2 ML VIAL. IV PRN (20:00)
[2019-08-09] MEDS ORDERED: METOPROLOL SUCC 24HR ER 25 MG TAB.ER.24H. PO ONE (21:34)
[2019-08-09] MEDS ORDERED: METOPROLOL TART IMMED RELEASE 25 MG TABLET ONE (21:35)
[2019-08-09] MEDS ORDERED: METO-239 PO (21:59)
[2019-08-09 22:10] VITALS: BP 143/100
[2019-08-09] MEDS ORDERED: SIMV20TA3 PO (22:10)
[2019-08-09] MEDS ORDERED: SIMVASTATIN 20 MG TABLET PO SCH (22:30)
[2019-08-09] MEDS ORDERED: METOPROLOL SUCC 24HR ER 25 MG TAB.ER.24H. PO SCH (22:30)
[2019-08-10 00:06] VITALS: BP 138/89
[2019-08-10] MEDS: MAG HYDROX/AL HYDROX/SIMETH 30 ML ORAL.SUSP PO PRN ×2 (02:01→04:47)
[2019-08-10 05:35] VITALS: BP 124/85
[2019-08-10 07:07] LABS: BASO % 0 % (0-3); CALCIUM 9.3 mg/dL (8.5-10.1); CREATININE 0.8 mg/dL (0.6-1.0); EOS % 0 % (0-3); GFR 74.5; HEMATOCRIT 51.3 % (36.0-47.0); HEMOGLOBIN 17.6 g/dL (12.0-15.5); LYMPH # 1.5 x10^3/uL (1.0-4.8); LYMPH % 12 % (24-48); MEAN CORPUSCULAR HEMOGLOBIN 30 pg (25-35); MEAN CORPUSCULAR HGB CONC 34 g/dL (31-37); MEAN CORPUSCULAR VOLUME 88 fL (79-100); MONO # 1.1 x10^3/uL (0.0-1.1); MONO % 9 % (0-9); NEUT # 9.7 x10^3uL (1.8-7.7); NEUT % 78 % (31-73); PLATELET COUNT 201 x10^3/uL (140-400); POTASSIUM 3.5 mmol/L (3.5-5.1); RED BLOOD COUNT 5.82 x10^6/uL (3.50-5.40); RED CELL DISTRIBUTION WIDTH 14.8 % (11.5-14.5); WHITE BLOOD COUNT 12.4 x10^3/uL (4.0-11.0)
[2019-08-10] MEDS ORDERED: MAALOX:LIDO:APAP 6:2:1 ORAL SUSPENSION 180 ML BOTTLE. PO PRN ×2 (08:45→10:43)
[2019-08-10] MEDS ORDERED: LOSARTAN 50 MG TABLET. PO SCH (09:00)
[2019-08-10] MEDS ORDERED: amLODIPine BESYLATE 10 MG TABLET PO SCH (09:00)
[2019-08-10 09:13] VITALS: BP 124/85
--- NOTE | 2019-08-10 10:23 | EKG ---
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
[2019-08-10] MEDS ORDERED: ASPIRIN 325 MG TABLET PO SCH (10:30)
[2019-08-10] MEDS ORDERED: ENOXAPARIN ** NOTE DOSE ** SYRINGE SQ SCH (11:00)
--- NOTE | 2019-08-10 12:02 | SSS ---
ADMIT DATE: 08/09/2019 HISTORY OF PRESENT ILLNESS: The patient is a 54-year-old female patient who came to the Emergency Room complaining of chest pain. She has been having intermittent chest pain that started since yesterday morning. It is worse with exertion and improves with rest. She also has some shortness of breath. Denied any nausea, vomiting when she arrived. Denied any diaphoresis or radiation to the left arm or left shoulder. At its worst, the pain as about 5/10. She described it as squeezing sensation. The patient had a cardiac catheterization 2-3 years ago and was reported to be negative. She was evaluated in the Emergency Room and has had an EKG, which basically showed that she was in sinus tachycardia at a rate of 105, normal axis, right bundle-branch block. No ST segment elevation or depression. She did have an inverted T-wave in V1. She has had her first set of cardiac enzyme, was 0.017, second one was 0.121 and the third one was 0.827 and therefore we contacted Dr. Choe and the plan was for her to be transferred to [facility] for cardiac catheterization. PAST MEDICAL HISTORY: Significant for hypertension, hyperlipidemia, morbid obesity, obstructive sleep apnea. She also has history of DVT and pulmonary embolism. Apparently, at that time, she had endometriosis, was treated with oral contraceptive pills that induced the DVT and subsequent pulmonary emboli, for which she was treated with Coumadin. She is no longer on any blood thinner. PAST SURGICAL HISTORY: Significant for . She had also total abdominal hysterectomy, bilateral salpingo-oophorectomy, tonsillectomy, had hernia repair. She had left heart catheterization about 2 years ago. She had a nerve ablation procedure done at [facility] done last Tuesday, although I do not have the specifics. ALLERGIES: She is allergic to AZITHROMYCIN, CIPRO and LATEX. MEDICATIONS: She is currently on following medications: She is on simvastatin 20 mg at bedtime, metoprolol succinate 25 mg at bedtime, amlodipine 10 mg once a day and losartan potassium 50 mg daily. FAMILY HISTORY: She has 3 brothers and 2 sisters. Her oldest brother of thyroid cancer, second brother has hypertension, arthritis and third brother has hypertension. Her one sister in a motor vehicle accident. One sister is alive and has hypertension. Her father in his early 60s with COPD and myocardial infarction. Her mother in her late 60s due to dementia and abdominal aortic aneurysm rupture. SOCIAL HISTORY: She is , has 2 daughters and 1 son. She never smoked, does not drink alcohol or use any recreational drugs. 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 REVIEW OF SYSTEMS: The patient denied any blurring of vision, cataract, glaucoma or macular degeneration. Denied any earache, tinnitus or sensorineural deafness. Denied any nosebleeds, stuffy nose or postnasal drip. Denied any sore throat, sore tongue, toothache, hoarseness of voice or difficulty swallowing. Denied any nausea, vomiting, diarrhea or constipation. Denied any hematemesis, melena, hematochezia. Denied any dysuria, frequency or hematuria. Did complain of intermittent chest pain and shortness of breath, worse with exertion. Denied any nausea or vomiting. Denied any diaphoresis or radiation of pain. PHYSICAL EXAMINATION: GENERAL: On examining her, she looked well and was clearly in no apparent respiratory distress. No pallor, jaundice, cyanosis or thyromegaly. No jugular venous distension. No lower limb edema. VITAL SIGNS: Her heart rate was 92, blood pressure was 124/85, temperature was 98, respiratory rate was 20 and oxygen saturation was 92% on 2 liters of oxygen. HEAD, EYES, EARS, NOSE AND THROAT: Showed normocephalic, atraumatic. NECK: Supple. HEART: Showed normal first and second heart sounds. No gallop or murmur. CHEST: Clear to auscultation. No crepitation or rhonchi. NEUROLOGIC: She is awake, alert, responding appropriately. All cranial nerves intact. EXTREMITIES: She moves extremities without difficulty. LABORATORY DATA: Her white cell count on admission was 15,000, hemoglobin 19, hematocrit 56, MCV 89 and platelet count of 251,000. Her chemistry showed serum sodium 140, potassium 3.7, chloride 101, bicarbonate 25, anion gap of 14, BUN 13, creatinine 1, estimated GFR was 57 mL per minute. Her glucose 156, calcium was 9.9, magnesium was 2.2. Total bilirubin, AST, ALT, alkaline phosphatase were normal. Beta natriuretic peptide was 166. Total protein was 8.6, albumin was 4.2. She had 3 sets of cardiac enzymes that steadily risen from less than 0.017 to 0.121, then finally this morning up to 0.827. Her chest x-ray showed that the patient has no consolidation, pleural effusion, normal heart size. ASSESSMENT AND PLAN: The patient will be discharged and transferred to [facility] with diagnosis of non-ST segment elevation myocardial infarction. Other medical problems include hypertension, hyperlipidemia, morbid obesity, obstructive sleep apnea, history of deep venous thrombosis and pulmonary embolism. TREASURE NUNES MD DR: LESLEY/tabitha JOB#: [id number] / [id number]
[2019-08-10] MEDS ORDERED: SIMVASTATIN 20 MG TABLET PO SCH (21:00)
== END 2019-08-10 11:30 | disposition short-term general hospital (02) | DRG 281 ==
LOC: ER 17:15 → 1 SOUTH 21:50
PROVIDERS: ADMIT Internal Medicine; ATTEND Internal Medicine
DX: I21.4 Non-ST elevation (NSTEMI) myocardial infarction (principal); R65.10 Systemic inflammatory response syndrome (SIRS) of non-infectious origin without acute organ dysfunction; I10 Essential (primary) hypertension; E66.01 Morbid (severe) obesity due to excess calories; E78.5 Hyperlipidemia, unspecified; G47.33 Obstructive sleep apnea (adult) (pediatric); I45.10 Unspecified right bundle-branch block; Z80.8 Family history of malignant neoplasm of other organs or systems; Z82.49 Family history of ischemic heart disease and other diseases of the circulatory system; Z82.5 Family history of asthma and other chronic lower respiratory diseases; Z86.711 Personal history of pulmonary embolism; Z86.718 Personal history of other venous thrombosis and embolism; Z90.710 Acquired absence of both cervix and uterus; M19.90 Unspecified osteoarthritis, unspecified site
CPT/HCPCS: 36415; 71045; 80048; 80053; 83735; 83880; 84484; 85025; 93005; 96360; J1650; J2405; 99285-25; J7030

== ENCOUNTER → 2021-07-16 | Outpatient (CLI) | payer BC ==
[~2021-07-16] MED LIST changes: +AMLO-187 PO; -AMLO10TA8 PO; +SIMV20TA18 PO; +SIMV40TA18 PO; -SIMV40TA3 PO
--- NOTE | 2021-07-16 09:50 | RAD ---
EXAM: Cervical spine, 5 views; thoracic spine, 3 views. HISTORY: Pain. COMPARISON: None. FINDINGS: Cervical spine: 5 views of the cervical spine are obtained. There is slight listhesis of C4 on C5 and C5 on C6. There is degenerative endplate remodeling with disc space narrowing predominantly at C5-C6 . There is multilevel facet arthropathy. No severe stenosis is seen. Thoracic spine: 3 views of the thoracic spine are obtained. There is mild thoracic dextro curvature. There is no significant listhesis. There is mild multilevel endplate remodeling and anterior predomin ant spurring. IMPRESSION: 1. No acute osseous finding. 2. Multilevel degenerative change involving the cervical and thoracic spine, predominantly at C5-C6. Electronically signed by: Carmelina Borges MD (07/16/2021 9:48 AM) [id number]
== END ==
LOC: RAD 08:06
PROVIDERS: ATTEND Physician Assistant Medical
DX: M47.812 Spondylosis without myelopathy or radiculopathy, cervical region (principal); M47.814 Spondylosis without myelopathy or radiculopathy, thoracic region; M48.8X2 Other specified spondylopathies, cervical region; M48.02 Spinal stenosis, cervical region; M43.8X4 Other specified deforming dorsopathies, thoracic region; M46.04 Spinal enthesopathy, thoracic region
CPT/HCPCS: 72050; 72072